=== PATIENT | male | born 1950 | race Caucasian/White ===

== ENCOUNTER 2016-08-31 08:07 | Day surgery (SDC) | payer OTHER ==
--- NOTE | ~2016-08-31 | EGD ---
EGD REPORT [facility] [address] [address] NAME: LIU LAIRD : [birth year] STATUS : REG [facility]#: [id number] AGE: 66 ADM/REG DATE : 08/31/16 MR#: [id number] REPORT SERV DATE: 08/31/16 DICTATED BY: STEPHANIA DOHERTY DATE: 08/31/16 REPORT STATUS : Draft TRANSCRIBED BY: [employer] DATE: 08/31/16 [facility] Patient Name: Liu Laird Date of : 1950 Attending MD: STEPHANIA DOHERTY MD Procedure Date No Time: 08/31/2016 Procedure: Colonoscopy Indications: Screening for colorectal malignant neoplasm Referring MD: LUKE CALDWELL III Medicines: as per anesthesia Complications: No immediate complications. Procedure: Pre-Anesthesia Assessment: - ASA Grade Assessment: III - A patient with severe systemic disease. After I obtained informed consent, the scope was passed under direct vision. Throughout the procedure, the patient's blood pressure, pulse, and oxygen saturations were monitored continuously. The PCF [id number] was introduced through the anus and advanced to the cecum, identified by appendiceal orifice and ileocecal valve. The colonoscopy was performed without difficulty. The patient tolerated the procedure. The quality of the bowel preparation was adequate to identify polyps. Findings: The perianal and digital rectal examinations were normal. A sessile polyp was found in the ascending colon. The polyp was 4 mm in size. The polyp was removed with a cold biopsy forceps. Resection and retrieval were complete. A sessile polyp was found in the descending colon. The polyp was 6 mm in size. The polyp was removed with a cold biopsy forceps. Resection and retrieval were complete. Internal hemorrhoids were found during endoscopy and were mild. Impression: - One 4 mm polyp in the ascending colon. Resected and retrieved. - One 6 mm polyp in the descending colon. Resected and retrieved. - Internal hemorrhoids. Recommendation: - Await pathology results. - Repeat colonoscopy for surveillance based on pathology results. Procedure Code(s): --- Professional --- EGD REPORT [address] [address] NAME: LIU LAIRD : [birth year] STATUS : REG [facility]#: [id number] AGE: 66 ADM/REG DATE : 08/31/16 MR#: [id number] REPORT SERV DATE: 08/31/16 DICTATED BY: STEPHANIA DOHERTY. DATE: 08/31/16 REPORT STATUS : Draft TRANSCRIBED BY: [employer] DATE: 08/31/16 [id number], Colonoscopy, flexible, proximal to splenic flexure; with biopsy, single or multiple Diagnosis Code(s): --- Professional --- D12.4, Benign neoplasm of descending colon D12.2, Benign neoplasm of ascending colon K64.8, Other hemorrhoids Z12.11, Encounter for screening for malignant neoplasm of colon CPT copyright 2013 [employer]. All rights reserved. The codes documented in this report are preliminary and upon green building architect review may be revised to meet current compliance requirements. STEPHANIA DOHERTY MD 08/31/2016 10:37 AM This report has been signed electronically. Number of Addenda: 0 Note Initiated On: 08/31/2016 9:41 AM Scope Withdrawal Time 0 hours 27 minutes 49 seconds
[~2016-08-31 08:07] MED LIST: GLUCPH PO; MOBIC15 MG PO; NORCO1 TA2 PO
== END 2016-08-31 23:59 | disposition home or self-care (01) ==
LOC: DMU 08:07
PROVIDERS: Internal Medicine Gastroenterology
PROC: 0DBM8ZZ Excision of Descending Colon, Via Natural or Artificial Opening Endoscopic (ICD-10-PCS; 2016-08-31)
PROC: 0DBK8ZZ Excision of Ascending Colon, Via Natural or Artificial Opening Endoscopic (ICD-10-PCS; principal; 2016-08-31 09:30)
DX: Z12.11 Encounter for screening for malignant neoplasm of colon (principal); D12.2 Benign neoplasm of ascending colon; D12.4 Benign neoplasm of descending colon; K64.8 Other hemorrhoids; E11.9 Type 2 diabetes mellitus without complications; M19.90 Unspecified osteoarthritis, unspecified site; K74.60 Unspecified cirrhosis of liver; Z79.891 Long term (current) use of opiate analgesic; Z98.890 Other specified postprocedural states; Z79.84 Long term (current) use of oral hypoglycemic drugs
CPT/HCPCS: 82962; 88305